=== PATIENT | female | born 1960 | race Caucasian/White ===

== ENCOUNTER 2017-12-08 13:50 | Outpatient (CLI) | payer BC ==
--- NOTE | 2017-12-08 15:37 | ULT ---
THYROID ULTRASOUND: Date: 12-08-17 History: Thyroid nodule. FINDINGS: Right lobe of the thyroid gland measures 4.3 cm x 1.5 cm x 1.4 cm with the left lobe measuring 4.3 cm x 1.1 cm x 1.7 cm. The thyroid isthmus measures 0.2 cm in AP dimensions. There is a 0.9 cm complex cystic and solid lesion seen in the midportion of each lobe of the thyroid gland which more solid appearance of the nodule in the right lobe of the thyroid, although the nodule does appear isoechoic. No additional nodules are seen in either lobe of the thyroid gland. IMPRESSION: TIRADS level III, mildly suspicious nodule. However, these nodules are less than 1.5 cm and require n o additional follow up or fine needle aspiration. POS: [facility]
== END 2017-12-08 13:51 | disposition home or self-care (01) ==
LOC: SCSULT 13:50
PROVIDERS: ATTEND Otolaryngology Plastic Surgery within the Head & Neck
DX: E04.1 Nontoxic single thyroid nodule (principal); E04.2 Nontoxic multinodular goiter
CPT/HCPCS: 76536

== ENCOUNTER 2018-02-25 08:06 | Outpatient (CLI) | payer BC ==
[2018-02-25 08:49] LABS: Bilirubin Negative (Negative); Blood, Urine Negative (Negative); Glucose, Urine (Dipstick) Negative (Negative); Leukocyte Trace (Negative); Nitrite Negative (Negative); Protein, Urine (Dipstick) Negative (Neg-Trace); Specific Gravity, Urine 1.015 (1.005-1.030); Urobilinogen 0.2 mg/dL (0.2-1.0)
[2018-02-25 08:51] LABS: Clarity Slightly Cloudy (Clear)
[2018-02-25 08:56] LABS: Bacteria/HPF None Seen HPF (None Seen); RBC/HPF 0-3 HPF (0-3); Squamous Epithelial 0-3 HPF (0-3); WBC/HPF 0-3 HPF (0-3)
[2018-02-25 08:58] LABS: Anion Gap 12 mmol/L (10-20); BUN (Urea Nitrogen) 17 mg/dL (9.8-20.1); Calc. Creatinine Clearance 0 mL/min (70-130); Calcium 9.7 mg/dL (7.8-10.44); Carbon Dioxide 25 mmol/L (22-29); Chloride 109 mmol/L (98-107); Estimated GFR-MDRD 74; Potassium 3.8 mmol/L (3.5-5.1); Sodium 142 mmol/L (136-145)
--- NOTE | 2018-02-25 09:07 | ULT ---
RENAL ULTRASOUND: CLINICAL HISTORY: History of renal cyst. COMPARISON: No prior imaging comparison available. FINDINGS: There is a benign-appearing approximately 2 cm cyst of the left kidney approximating the lower pole. No hydronephrosis of either kidney. Left renal length is documented at approximately 10 cm and the right renal length between 9 and 10 cm. The urinary bladder is minimally distended limiting assessme nt. IMPRESSION: Benign-appearing left renal cyst. POS: MARI[facility]LE
[2018-02-25 09:08] LABS: Glucose 59 mg/dL (70-105)
== END 2018-02-25 08:07 | disposition home or self-care (01) ==
LOC: SCSULT 08:06
PROVIDERS: ATTEND Urology
DX: N28.1 Cyst of kidney, acquired (principal); N36.8 Other specified disorders of urethra; R35.0 Frequency of micturition
CPT/HCPCS: 36415; 76770; 80048; 81003; 81015

== ENCOUNTER 2018-10-18 12:48 | Outpatient (CLI) | payer BC ==
--- NOTE | 2018-10-18 15:13 | RAD ---
LUMBAR SPINE TWO VIEWS: HISTORY: M43.07, spondylolysis, lumbosacral region. TECHNIQUE: AP and lateral views of the lumbar spine are performed. FINDINGS: There is an approximately 1 cm in diameter grade 1-2 anterolisthesis of L5 on S1 with probable bilate ral pars defects. Minimal generalized disk osteophytosis and facet arthrosis. No acute fracture. N o focal bone lesion. IMPRESSION: 1. A 1 cm grade 1-2 anterolisthesis of L5 on S1. 2. Generalized spondylosis. POS: [facility]
== END 2018-10-18 12:49 | disposition home or self-care (01) ==
LOC: SCSRAD 12:48
PROVIDERS: ATTEND Internal Medicine Rheumatology
DX: M43.07 Spondylolysis, lumbosacral region (principal); M43.17 Spondylolisthesis, lumbosacral region; M47.816 Spondylosis without myelopathy or radiculopathy, lumbar region
CPT/HCPCS: 72100

== ENCOUNTER 2024-03-03 12:49 | Outpatient (CLI) | payer BC | END 2024-03-03 12:50 | disposition home or self-care (01) | LOC: SCSMRI 12:49 | PROVIDERS: ATTEND Psychiatry & Neurology Neurology | DX: G43.909 Migraine, unspecified, not intractable, without status migrainosus (principal); I67.89 Other cerebrovascular disease | CPT/HCPCS: 70553; 76377 ==